=== PATIENT | female | born 1955 | race Caucasian/White ===

== ENCOUNTER 2016-11-28 21:47 | Emergency (ER) | payer OTHER ==
--- NOTE | 2016-11-28 23:31 | DIAGNOSTIC IMAGING REPORT ---
PROCEDURE: XR CHEST 1 VIEW INDICATION: CHEST PAIN TECHNIQUE: Portable AP view (2310 hours). COMPARISON: None. FINDINGS: Allowing for overlying wires and electrodes, lungs are clear. Heart and mediastinum are normal. Thorax is normal. IMPRESSION: 1. Negative chest.
--- NOTE | 2016-11-29 | DIAGNOSTIC IMAGING REPORT ---
PROCEDURE: US ABDOMEN ULTRASOUND-LIMITED INDICATION: Epigastric pain. TECHNIQUE: Jacome scale and color Doppler sonographic images of the abdomen were obtained. COMPARISON: None. FINDINGS: There are multiple layering and shadowing gallstones. There is no evidence of gallbladder wall thickening (2 mm). Common duct is within normal limits (6 mm). Portions of the liver, pancreas, and right kidney are seen, and are normal. IMPRESSION: 1. Cholelithiasis (multiple layering gallstones).
--- NOTE | 2016-11-29 00:09 | ED CLINICAL REPORT ---
Clinical Report - Physicians/Mid Levels [facility] [address] [place] [address] 11/28/2016 21:49 Patient: MAYE ROMO Time Seen: 22:11. Arrived- By private vehicle. Historian- patient. HISTORY OF PRESENT ILLNESS Chief Complaint: CHEST PAIN. It is described as pressure and it is described as located in the right chest area and RUQ of the abdomen and radiating to the upper back. At its maximum, severity described as 10 / 10. When seen in the E.D., it was gone. Modifying factors- worsened by supine position. Relieved by upright position. This started today and is now gone. It was gradual in onset and has been constant and waxing/waning. Onset during rest. No nausea or vomiting. She has had difficulty breathing and has experienced diaphoresis. Similar symptoms previously: Several times. REVIEW OF SYSTEMS No chills, fever, sweats, calf pain or abdominal pain. No black stools, bloody stools, constipation, nausea or vomiting. No urinary problems. She has had a mild nonproductive cough (today - " a tickle"). She has had pedal edema (recently while she was on a road trip to [place] and back). She has had mild diarrhea (today). She had a stress test at the [facility] abut 6 years ago. All systems otherwise negative, except as recorded above. PAST HISTORY PCP - Hannah Chandra. Problems: Anxiety Reaction. Gallstone(s). Hyperlipidemia. Additional Surgeries: Bunion . . Ovarian cyst x 2 . Tubal Ligation. Medications: ASA Oral 325, day. BusPIRone HCl Oral 10 mg, 2x a day. Simvastatin Oral 20 mg, daily. Allergies: No Known Drug Allergy. SOCIAL HISTORY Never smoker. Occasional alcohol use. No drug use. Recent travel- [facility]. Residence: [place] she lives with spouse. Has good social support. FAMILY HISTORY No history of aortic aneurysm or dissection. Hypertension in first-degree relative (mother); heart disease in first-degree relative (mother and father); cancer in first-degree relative (father). ADDITIONAL NOTES The nursing notes have been reviewed. PHYSICAL EXAM Vital Signs: 11/28/2016 21:50 BP: 194/72. HR: 71. RR: 16. O2 saturation: 96%. Temp: 97.6 F. Pain level now: 10. Have been reviewed. Appearance: Alert. Eyes: Pupils equal, round and reactive to light. ENT: Pharynx normal. Neck: Neck supple. CVS: Normal heart rate and rhythm. Heart sounds normal. Respiratory: No respiratory distress. Breath sounds normal. Abdomen: Soft. Mild tenderness in the right upper quadrant. Bowel sounds normal. No organomegaly. No mass. Obese. Back: Normal external inspection. Skin: Skin warm and dry. Normal skin color. Normal skin turgor. Extremities: Extremities exhibit normal ROM. No calf tenderness. No lower extremity edema. Neuro: No motor deficit. No sensory deficit. LABS, X-RAYS, AND EKG Abdominal Sonogram: Gallstones are present. Common duct is normal. No gallbladder wall thickening, pericholecystic fluid, dilated common duct or common duct stones. Laboratory Tests: CBC w Diff: (QUINTON: 11/28/2016 22:10) ( MsgRcvd 11/28/2016 22:25) Final results Test Result Flag Units (Reference) WHITE BLOOD COUNT 7.8 K/uL (4.5-11.5) RED BLOOD COUNT 4.73 M/uL (4.00-5.20) HEMOGLOBIN 14.3 gm/dL (12.0-16.0) HEMATOCRIT 42.9 % (36.0-46.0) MEAN CELL VOLUME 91 fL (80-100) MEAN CORPUSCULAR HGB 30 pg (26-34) MEAN CORPUSCULAR HGB CONC 33 g/dL (31-37) RED CELL DISTRIBUTION WIDTH 12.9 % (11.6-14.8) PLATELET COUNT 183 K/uL (150-400) NEUTROPHIL % 53.6 % (50-75) LYMPH % 37.1 % (25-40) MONO % 6.1 % (3-14) EOSINOPHIL % 2.6 % (0-4) BASOPHIL % 0.6 % (0-2) PT with INR: (QUINTON: 11/28/2016 22:10) ( MsgRcvd 11/28/2016 22:30) Final results Test Result Flag Units (Reference) INR 0.9 (0.8-1.2) Low Intensity Therapy: INR 1.5-2.0 PT range 18.5-23.1Mod.Intensity Therapy: INR 2.0-3.0 PT range 23.1-31.5High Intensity Therapy: INR 2.5-3.5 PT range 27.4-35.5High Intensity Therapy 2: INR 3.0-4.0 PT range 31.5-39.3 APTT 27 SECONDS (24-34) BNP: (QUINTON: 11/28/2016 22:10) ( [facility] 11/28/2016 22:52) Final results Test Result Flag Units (Reference) B-TYPE NATRIURETIC PEPTIDE 19.7 pg/ml (5-100) CMP: (QUINTON: 11/28/2016 22:10) ( IlgRcvd 11/28/2016 22:44) Final results Test Result Flag Units (Reference) GLUCOSE 119 H mg/dL (70-110) BUN 19 H mg/dL (7-18) CREATININE 0.8 mg/dL (0.6-1.3) Estimated GFR >60 mL/min Estimated GFR- >60 mL/min Note: Persistent reduction over 3 months in eGFR<60 mL/min/1.73 m2 defines CKD. Patients with eGFR values>=60 mL/min/1.73 m2 may also have CKD if evidence ofpersistent proteinuria. Additional information may be foundat www.kidney.org. SODIUM 143 mmol/L (136-145) POTASSIUM 4.0 mmol/L (3.5-5.1) CHLORIDE 107 mmol/L (98-107) CARBON DIOXIDE 26 mmol/L (21-32) CALCIUM 9.1 mg/dL (8.5-10.1) TOTAL PROTEIN 7.5 g/dL (6.4-8.2) ALBUMIN 3.7 g/dL (3.3-5.0) BILIRUBIN, TOTAL 0.3 mg/dL (0.0-1.0) ALKALINE PHOSPHATASE 85 U/L (46-116) AST (SGOT) 58 H U/L (15-37) ALT (SGPT) 54 U/L (12-78) LIPASE 158 U/L (73-393) AMYLASE 61 U/L (25-115) CPK 51 U/L (24-260) TROPONIN I <0.05 L ng/mL (0.00-1.5) TROPONIN REFERENCE RANGE:<0.1 NEGATIVE0.1-1.5 INDETERMINANT>1.5 POSITIVE . PROGRESS AND PROCEDURES Course of Care: I asked the patient whether she would prefer if I contact a surgeon now for consultation whether she would like to do this on an outpatient basis. She says that she is feeling well currently has no pain and understands the pathophysiology of her illness. She will follow-up on an outpatient basis for surgical evaluation. Additionally she said she will return here if her symptoms recur or worsen or if any new symptoms develop. Patient is stable. Patient/family counseled. Old medical records ordered. Old records unavailable. Disposition: Discharged. Condition: stable. CLINICAL IMPRESSION Gallbladder disease with multiple gallstones; acute biliary colic. INSTRUCTIONS Avoid fatty and fried/greasy foods. Warnings: Further evaluation is necessary. GENERAL WARNINGS: Return or contact your physician immediately if your condition worsens or changes unexpectedly, if not improving as expected, or if other problems arise. Your Current Medications: CONTINUE TAKING THE FOLLOWING MEDICATIONS: ASA Oral : 325 day. BusPIRone HCl Oral : 10 mg 2x a day. Simvastatin Oral : 20 mg daily. Understanding of the discharge instructions verbalized by patient and family. Follow-up with: Ander Hannon MD, General Surgeon, , [facility], [address] [place] [address] Follow up Thursday in three days. Call for the next available appointment. (Electronically signed by Hero Anna MD 12/01/2016 10:04)
--- NOTE | 2016-11-29 00:09 | ED ORDER SUMMARY ---
..... Patient: MAYE ROMO OrderSheet [facility] VisitID: [id number] [place] [address] 61y, F Registration Date/Time: 11/28/2016 ORDER SHEET Weight: 96.6 kg (stated) Allergies: No Known Drug Allergy GENERAL ORDERS: Chest 1V Urgent (22:14 11/28/2016 Catherine THOMAS) (Ack 22:19 SRemackenzie) (23:15 MCampbell) Kids Club Attendant (Continuous) (22:14 11/28/2016 Catherine THOMAS) (22:17 SRoberts R.N.) (Ack 22:19 SRemackenzie) CBC w Diff Urgent (22:15 11/28/2016 Catherine THOMAS) (22:18 SRoberts R.N.) (Ack 22:19 SRemackenzie) CMP Urgent (22:11/28/2016 Catherine THOMAS) (22:18 SRoberts R.N.) (Ack 22:19 SRemackenzie) UA-Culture if indicated Urgent (22:15 11/28/2016 Catherine THOMAS) (Ack 22:19 Edmund) (23:50 TBowen R.N.) PT with INR Urgent (22:15 11/28/2016 Catherine THOMAS) (22:18 SRoberts R.N.) (Ack 22:19 SRemackenzie) PTT Urgent (22:15 11/28/2016 Catherine THOMAS) (22:18 SRoberts R.N.) (Ack 22:19 SRemackenzie) Amylase Urgent (22:15 11/28/2016 Catherine THOMAS) (22:18 SRoberts R.N.) (Ack 22:19 SRemackenzie) Lipase Urgent (22:15 11/28/2016 Catherine THOMAS) (22:18 SRoberts R.N.) (Ack 22:19 Edmund) CPK Urgent (22:15 11/28/2016 Catherine THOMAS) (22:18 SRoberts R.N.) (Ack 22:19 SRemackenzie) Troponin-I Urgent (22:15 11/28/2016 Catherine THOMAS) (22:18 SRoberts R.N.) (Ack 22:19 SRedmond) BNP Urgent (22:15 11/28/2016 Catherine THOMAS) (22:18 SRgeorgits R.N.) (Ack 22:19 SRedmond) Oxygen (2 L/min) (NC) (22:15 11/28/2016 Catherine THOMAS) (22:17 Ag R.N.) (Ack 22:19 SRedmond) Pulse oximeter (22:15 11/28/2016 Catherine THOMAS) (22:17 Ag R.N.) (Ack 22:19 SRedmond) EKG - ER Stat (22:15 11/28/2016 Catherine THOMAS) (22:17 Ag R.N.) (22:18 SRedmond) (22:18 Memo) D-Dimer Urgent (23:02 11/28/2016 Catherine THOMAS) (Ack 23:05 SRedmond) (0:07 HSoule) US Abdomen Limited (No) Urgent (23:05 11/28/2016 Catherine THOMAS) (Ack 23:09 SRedmond) (23:27 SRedmond) MEDICATION ORDERS: Aspirin PO 325 mg (NOW) (22:14 11/28/2016 Catherine THOMAS) (Ack 22:18 Ag R.N.) (22:21 Ag R.N.) IV FLUIDS: IV Saline Lock (22:15 11/28/2016 Catherine THOMAS) (22:18 Ag R.N.) ORDER SHEET NOTES: [Electronically signed by Aga Walter R.N. (00:29 11/29/2016)] [Electronically signed by Hero Anna MD (10:04 12/01/2016)] [Electronically locked/signed by Aga Walter R.N. (00:29 11/29/2016)]
--- NOTE | 2016-11-29 00:09 | ED NURSING NOTES ---
Clinical Report - Nurses Located Within [facility] [place] [address] [place] [address] 11/28/2016 21:49 Patient: MAYE ROMO TRIAGE Triage time 21:51. Acuity: LEVEL 3. Chief Complaint: CHEST PAIN and BACK PAIN (Pain located under the rt breast. started a couple of hours ago.). Alert. No acute distress. SEPSIS SCREEN: Sepsis Screen: negative. Negative (no infection suspected/documented). MAIK COMA SCORE: [place] Coma Scale: 15- eyes open spontaneously (4); best verbal response- oriented x 4 (5); best motor response- obeys commands (6). --21:58 Giovanna Ordonez R.N. 21:50 11/28/16. BP: 194/72 taken on the right arm, while sitting. HR: 71. RR: 16. O2 saturation: 96% on room air. Temp: 97.6 F. Pain level now: 12/31. --21:58 Giovanna Ordonez R.N. Weight: 96.6 kg stated. Height/Length: 65 inches Per Patient. BMI: 35.5. --21:56 Giovanna Ordonez R.N. Medications Simvastatin Oral 20 mg, daily. --21:53 Giovanna Ordonez R.N. BusPIRone HCl Oral 10 mg, 2x a day. --21:53 Giovanna Ordonez R.N. ASA Oral 325, day. --21:53 Giovanna Ordonez R.N. Medication/allergy information source: the patient. --21:58 Giovanna Ordonez R.N. Allergies No Known Drug Allergy. --21:53 Giovanna Ordonez R.N. History Arrived by private vehicle. Historian: patient. Accompanied by family. Patient has a primary care physician. Primary physician (andie). Onset. (2 hours ago). She has had difficulty breathing ("when the pain hits hard"). Reports experiencing sweating episodes. She has had a cough. Treatment A CLASS LINEMAN: (tums). PAST MEDICAL HX: Immunizations: status is unknown. The patient is post-menopausal. SOCIAL HX: Never smoker. Occasional alcohol use. No drug use. No infectious disease exposure. ABUSE ASSESSMENT: No report of abuse. FALL RISK ASSESSMENT: Fall risk assessment completed. No fall risk identified. NUTRITIONAL RISK ASSESSMENT: The nutritional risk assessment revealed no deficiencies. FUNCTIONAL ASSESSMENT: Functional assessment: no impairments noted. LEARNING NEEDS ASSESSMENT: The learning needs assessment revealed no barriers. SKIN INTEGRITY ASSESSMENT: Skin integrity risk assessment completed. No skin integrity risk identified. --21:58 Giovanna Ordonez R.N. PROBLEMS: Hyperlipidemia. --21:55 Giovanna Ordonez R.N. ADDITIONAL SURGERIES: Bunion . . Ovarian cyst x 2 . Tubal Ligation. --21:55 Giovanna Ordonez R.N. Interventions ID band on patient. To room. --21:58 Giovanna Ordonez R.N. PHYSICAL ASSESSMENT Ambulatory to room. Patient gowned. GENERAL / NEURO / PSYCH: Alert. Oriented X 4. Appears in pain and anxious. HEENT: Mucous membranes are pink. RESPIRATORY: Respirations not labored. CVS: Pulses within normal limits. Capillary refill less than 2 seconds. GI / : The patient has had nausea. Abdominal tenderness in the right upper quadrant. EXTREMITIES: No lower extremity edema. SKIN: Skin is warm and dry. Normal skin turgor. Skin is non-tender. --21:59 Giovanna Ordonez R.N. NURSING PROGRESS NOTES Oxygen administered by nasal cannula (2 l/nc). monitor and storage bin tender, pulse oximeter and NIBP monitor placed on patient; cardiac cath tech- Lead II; monitor alarms on. Patient gowned. Head of bed elevated. Two patient identifiers checked. Call light placed in reach. Side rails up x 1. Bed placed in lowest position. Brakes of bed on. Patient ready for evaluation- chart flagged. --22:01 Giovanna Ordonez R.N. 22:01 11/28/2016 One (1) unsuccessful IV access attempt including the left antecubital space. Applied bandage and pressure dressing. --22:01 Giovanna Ordonez R.N. 22:10 11/28/2016 Site #1 started via IV in the right antecubital space with an 20g angiocath, with aseptic technique and good blood return; one attempt. Saline lock flushed with 10 mL saline. --22:10 Giovanna Ordonez R.N. 22:10 11/28/2016 Site #2 started via IV in the left wrist with an 20g angiocath, with aseptic technique and good blood return; one attempt. Blood drawn: rainbow set. Labeled in the presence of the patient and sent to the lab. Saline lock flushed with 10 mL saline. --22:10 Giovanna Ordonez R.N. EKG time: (2213 PM). EKG was performed by a tech and shown to the ED physician. --22:11 Giovanna Ordonez R.N. 22:21 11/28/2016 Aspirin PO 325 mg given. Allergies verified and confirmed 5 rights. --22:21 Giovanna Ordonez R.N. Care transferred and report given (Noemi RN). --22:33 Giovanna Ordonez R.N. ( pt resting in bed, no distress at this time, US is complete). --23:51 James Cotto DISPOSITION / DISCHARGE 00:28 11/29/2016 Site #1 removed upon discharge. Catheter intact. Bandaid applied. --00:28 James Cotto 00:28 11/29/2016 Site #2 removed upon discharge. Catheter intact. Bandaid applied. --00:28 James Cotto Departure time: 00:29. Condition at departure: improved. No learning barriers present. Discharge instructions provided and reviewed with the patient. Reviewed referral to a surgeon. Reviewed diet. Patient verbalized understanding. Written instructions provided in Armenian. No warning instructions, medication instructions, treatment instructions, activity restrictions or follow up contact number given. No stop smoking instructions. No work note given. The patient was discharged by the physician. She was discharged home and accompanied by spouse. She left the Emergency Department ambulatory and via private vehicle. Patient driving. FALL RISK ASSESSMENT: Fall risk assessment completed. No fall risk identified. --00:29 James Cotto 00:28 11/29/16. BP: 148/68. HR: 71. RR: 18. O2 saturation: 98%. Temp: deferred. Pain level now: 0/10. --00:29 James Cotto Locked/Released at 11/29/2016 0:29 by James Cotto
--- NOTE | 2016-11-29 00:09 | ED NURSING NOTES ---
Clinical Report - Nurses [facility] [place] [address] [address] 11/28/2016 21:49 Patient: MAYE ROMO TRIAGE Triage time 21:51. Acuity: LEVEL 3. Chief Complaint: CHEST PAIN and BACK PAIN (Pain located under the rt breast. started a couple of hours ago.). Alert. No acute distress. SEPSIS SCREEN: Sepsis Screen: negative. Negative (no infection suspected/documented). MAIK COMA SCORE: [place] Coma Scale: 15- eyes open spontaneously (4); best verbal response- oriented x 4 (5); best motor response- obeys commands (6). --21:58 Giovanna Ordonez R.N. 21:50 11/28/16. BP: 194/72 taken on the right arm, while sitting. HR: 71. RR: 16. O2 saturation: 96% on room air. Temp: 97.6 F. Pain level now: 12/31. --21:58 Giovanna Ordonez R.N. Weight: 96.6 kg stated. Height/Length: 65 inches Per Patient. BMI: 35.5. --21:56 Giovanna Ordonez R.N. Medications Simvastatin Oral 20 mg, daily. --21:53 Giovanna Ordonez R.N. BusPIRone HCl Oral 10 mg, 2x a day. --21:53 Giovanna Ordonez R.N. ASA Oral 325, day. --21:53 Giovanna Ordonez R.N. Medication/allergy information source: the patient. --21:58 Giovanna Ordonez R.N. Allergies No Known Drug Allergy. --21:53 Giovanna Ordonez R.N. History Arrived by private vehicle. Historian: patient. Accompanied by family. Patient has a primary care physician. Primary physician (andie). Onset. (2 hours ago). She has had difficulty breathing ("when the pain hits hard"). Reports experiencing sweating episodes. She has had a cough. Treatment ADMINISTRATIVE SALES ASSISTANT: (tums). PAST MEDICAL HX: Immunizations: status is unknown. The patient is post-menopausal. SOCIAL HX: Never smoker. Occasional alcohol use. No drug use. No infectious disease exposure. ABUSE ASSESSMENT: No report of abuse. FALL RISK ASSESSMENT: Fall risk assessment completed. No fall risk identified. NUTRITIONAL RISK ASSESSMENT: The nutritional risk assessment revealed no deficiencies. FUNCTIONAL ASSESSMENT: Functional assessment: no impairments noted. LEARNING NEEDS ASSESSMENT: The learning needs assessment revealed no barriers. SKIN INTEGRITY ASSESSMENT: Skin integrity risk assessment completed. No skin integrity risk identified. --21:58 Giovanna Ordonez R.N. PROBLEMS: Hyperlipidemia. --21:55 Giovanna Ordonez R.N. ADDITIONAL SURGERIES: Bunion . . Ovarian cyst x 2 . Tubal Ligation. --21:55 Giovanna Ordonez R.N. Interventions ID band on patient. To room. --21:58 Giovanna Ordonez R.N. PHYSICAL ASSESSMENT Ambulatory to room. Patient gowned. GENERAL / NEURO / PSYCH: Alert. Oriented X 4. Appears in pain and anxious. HEENT: Mucous membranes are pink. RESPIRATORY: Respirations not labored. CVS: Pulses within normal limits. Capillary refill less than 2 seconds. GI / : The patient has had nausea. Abdominal tenderness in the right upper quadrant. EXTREMITIES: No lower extremity edema. SKIN: Skin is warm and dry. Normal skin turgor. Skin is non-tender. --21:59 Giovanna Ordonez R.N. NURSING PROGRESS NOTES Oxygen administered by nasal cannula (2 l/nc). biometrics instructor, pulse oximeter and NIBP monitor placed on patient; glass handler- Lead II; monitor alarms on. Patient gowned. Head of bed elevated. Two patient identifiers checked. Call light placed in reach. Side rails up x 1. Bed placed in lowest position. Brakes of bed on. Patient ready for evaluation- chart flagged. --22:01 Giovanna Ordonez R.N. 22:01 11/28/2016 One (1) unsuccessful IV access attempt including the left antecubital space. Applied bandage and pressure dressing. --22:01 Giovanna Ordonez R.N. 22:10 11/28/2016 Site #1 started via IV in the right antecubital space with an 20g angiocath, with aseptic technique and good blood return; one attempt. Saline lock flushed with 10 mL saline. --22:10 Giovanna Ordonez R.N. 22:10 11/28/2016 Site #2 started via IV in the left wrist with an 20g angiocath, with aseptic technique and good blood return; one attempt. Blood drawn: rainbow set. Labeled in the presence of the patient and sent to the lab. Saline lock flushed with 10 mL saline. --22:10 Giovanna Ordonez R.N. EKG time: (2213 PM). EKG was performed by a tech and shown to the ED physician. --22:11 Giovanna Ordonez R.N. 22:21 11/28/2016 Aspirin PO 325 mg given. Allergies verified and confirmed 5 rights. --22:21 Giovanna Ordonez R.N. Care transferred and report given (Noemi RN). --22:33 Giovanna Ordonez R.N. ( pt resting in bed, no distress at this time, US is complete). --23:51 James Cotto DISPOSITION / DISCHARGE 00:28 11/29/2016 Site #1 removed upon discharge. Catheter intact. Bandaid applied. --00:28 James Cotto 00:28 11/29/2016 Site #2 removed upon discharge. Catheter intact. Bandaid applied. --00:28 James Cotto Departure time: 00:29. Condition at departure: improved. No learning barriers present. Discharge instructions provided and reviewed with the patient. Reviewed referral to a surgeon. Reviewed diet. Patient verbalized understanding. Written instructions provided in French. No warning instructions, medication instructions, treatment instructions, activity restrictions or follow up contact number given. No stop smoking instructions. No work note given. The patient was discharged by the physician. She was discharged home and accompanied by spouse. She left the Emergency Department ambulatory and via private vehicle. Patient driving. FALL RISK ASSESSMENT: Fall risk assessment completed. No fall risk identified. --00:29 James Cotto 00:28 11/29/16. BP: 148/68. HR: 71. RR: 18. O2 saturation: 98%. Temp: deferred. Pain level now: 0/10. --00:29 James Cotto Locked/Released at 11/29/2016 0:29 by James Cotto
--- NOTE | 2016-11-29 00:09 | ED ORDER SUMMARY ---
..... Patient: MAYE ROMO OrderSheet [facility] VisitID: [id number] [place] [address] 61y, F Registration Date/Time: 11/28/2016 ORDER SHEET Weight: 96.6 kg (stated) Allergies: No Known Drug Allergy GENERAL ORDERS: Chest 1V Urgent (22:14 11/28/2016 Catherine THOMAS) (Ack 22:19 SRemackenzie) (23:15 MCampbell) Apprentice Lineman Third Step (Continuous) (22:14 11/28/2016 Catherine THOMAS) (22:17 SRoberts R.N.) (Ack 22:19 SRemackenzie) CBC w Diff Urgent (22:15 11/28/2016 Catherine THOMAS) (22:18 SRoberts R.N.) (Ack 22:19 SRemackenzie) CMP Urgent (22:11/28/2016 Catherine THOMAS) (22:18 SRoberts R.N.) (Ack 22:19 SRemackenzie) UA-Culture if indicated Urgent (22:15 11/28/2016 Catherine THOMAS) (Ack 22:19 Edmund) (23:50 TBowen R.N.) PT with INR Urgent (22:15 11/28/2016 Catherine THOMAS) (22:18 SRoberts R.N.) (Ack 22:19 SRemackenzie) PTT Urgent (22:15 11/28/2016 Catherine THOMAS) (22:18 SRoberts R.N.) (Ack 22:19 SRemackenzie) Amylase Urgent (22:15 11/28/2016 Catherine THOMAS) (22:18 SRoberts R.N.) (Ack 22:19 SRemackenzie) Lipase Urgent (22:15 11/28/2016 Catherine THOMAS) (22:18 SRoberts R.N.) (Ack 22:19 Edmund) CPK Urgent (22:15 11/28/2016 Catherine THOMAS) (22:18 SRoberts R.N.) (Ack 22:19 SRemackenzie) Troponin-I Urgent (22:15 11/28/2016 Catherine THOMAS) (22:18 SRoberts R.N.) (Ack 22:19 SRedmond) BNP Urgent (22:15 11/28/2016 Catherine THOMAS) (22:18 SRgeorgits R.N.) (Ack 22:19 SRedmond) Oxygen (2 L/min) (NC) (22:15 11/28/2016 Catherine THOMAS) (22:17 Ag R.N.) (Ack 22:19 SRedmond) Pulse oximeter (22:15 11/28/2016 Catherine THOMAS) (22:17 Ag R.N.) (Ack 22:19 SRedmond) EKG - ER Stat (22:15 11/28/2016 Catherine THOMAS) (22:17 Ag R.N.) (22:18 SRedmond) (22:18 Memo) D-Dimer Urgent (23:02 11/28/2016 Catherine THOMAS) (Ack 23:05 SRedmond) (0:07 HSoule) US Abdomen Limited (No) Urgent (23:05 11/28/2016 Catherine THOMAS) (Ack 23:09 SRedmond) (23:27 SRedmond) MEDICATION ORDERS: Aspirin PO 325 mg (NOW) (22:14 11/28/2016 Catherine THOMAS) (Ack 22:18 Ag R.N.) (22:21 Ag R.N.) IV FLUIDS: IV Saline Lock (22:15 11/28/2016 Catherine THOMAS) (22:18 Ag R.N.) ORDER SHEET NOTES: [Electronically signed by Aga Walter R.N. (00:29 11/29/2016)] [Electronically signed by Hero Anna MD (10:04 12/01/2016)] [Electronically locked/signed by Aga Walter R.N. (00:29 11/29/2016)]
--- NOTE | 2016-12-01 10:04 | ED MED RECONCILIATION SUMMARY ---
Patient: MAYE ROMO Medication Reconciliation Report [facility] VisitID: [id number] [address] [place] [address] 61y, F Registration Date/Time: 11/28/2016 Weight: 96.6 kg Height/Length: 65 in. BMI: 35.5 ALLERGIES: No Known Drug Allergy The patient's Home Medications are listed below: CONTINUE TAKING THE FOLLOWING MEDICATIONS: ASA Oral 325, day BusPIRone HCl Oral 10 mg, 2x a day Simvastatin Oral 20 mg, daily The source(s) of the original Home Medication information: patient The following Medications were given to the patient in the Emergency Department: Aspirin [PO] PO 325 mg, administered: 11/28/2016 10:21:00 PM The following Medications were prescribed to the patient: None.
--- NOTE | 2016-12-01 10:04 | ED MAR SUMMARY ---
..... Medication Administration Record [facility] [address] [place] [address] Patient: MAYE ROMO Visit ID: [id number] 61y, F Weight: 96.6 kg Height/Length: 65 in BMI: 35.5 ALLERGIES: No Known Drug Allergy Given 22:21 11/28/2016 Giovanna Ordonez R.N. Medication Administered: ASPIRIN [PO], Dose: 325 mg PO. Medication Ordered: Aspirin PO 325 mg (NOW).
--- NOTE | 2016-12-01 10:04 | ED MED RECONCILIATION SUMMARY ---
Patient: MAYE ROMO Medication Reconciliation Report [facility] VisitID: [id number] [address] [place] [address] 61y, F Registration Date/Time: 11/28/2016 Weight: 96.6 kg Height/Length: 65 in. BMI: 35.5 ALLERGIES: No Known Drug Allergy The patient's Home Medications are listed below: CONTINUE TAKING THE FOLLOWING MEDICATIONS: ASA Oral 325, day BusPIRone HCl Oral 10 mg, 2x a day Simvastatin Oral 20 mg, daily The source(s) of the original Home Medication information: patient The following Medications were given to the patient in the Emergency Department: Aspirin [PO] PO 325 mg, administered: 11/28/2016 10:21:00 PM The following Medications were prescribed to the patient: None.
--- NOTE | 2016-12-01 10:04 | ED MAR SUMMARY ---
..... Medication Administration Record [facility] [address] [place] [address] Patient: MAYE ROMO Visit ID: [id number] 61y, F Weight: 96.6 kg Height/Length: 65 in BMI: 35.5 ALLERGIES: No Known Drug Allergy Given 22:21 11/28/2016 Giovanna Ordonez R.N. Medication Administered: ASPIRIN [PO], Dose: 325 mg PO. Medication Ordered: Aspirin PO 325 mg (NOW).
--- NOTE | 2016-12-01 10:04 | ED DISCHARGE INSTRUCTIONS ---
Patient: MAYE ROMO General Instructions [facility] VisitID: [id number] [place] [address] 61y, F Registration Date/Time: 11/28/2016 Gallbladder disease with multiple gallstones; acute biliary colic. INSTRUCTIONS Avoid fatty and fried/greasy foods. Warnings: Further evaluation is necessary. GENERAL WARNINGS: Return or contact your physician immediately if your condition worsens or changes unexpectedly, if not improving as expected, or if other problems arise. Your Current Medications: CONTINUE TAKING THE FOLLOWING MEDICATIONS: ASA Oral : 325 day. BusPIRone HCl Oral : 10 mg 2x a day. Simvastatin Oral : 20 mg daily. Understanding of the discharge instructions verbalized by patient and family. Follow-up with: Ander Hannon MD, General Surgeon, , [facility], [address] [place] [address] Follow up Thursday in three days. Call for the next available appointment. ADDITIONAL INFORMATION GallstonesWith Biliary Colic [Confirmed Dx] The abdominal pain that you have today is due to spasm of the gallbladder. The gallbladder is a small sac under the liver which stores and releases bile. Bile is a fluid that aids in the digestion of fat. A gallstone may form inside the gallbladder and block the flow of bile fluid. This causes mild to severe crampy pain in the mid or right upper abdomen with nausea and vomiting. Home Care: Rest in bed and follow a clear liquid diet until feeling better. If pain or nausea medicine was given to help with your symptoms, take these as directed. Fat in your diet makes the gallbladder contract and may cause increased pain. Therefore, avoid fat in your diet over the next two days and follow a low-fat diet after that. If you are overweight, a low-fat diet will also help you lose weight. Follow Up with your doctor. There is a 50% chance that you will have another episode of pain from your gallstones during the next 2 years. Removal of the gallbladder is the treatment of choice to prevent this. Schedule an appointment with your own doctor during the next week to discuss the treatment options. Get Prompt Medical Attention if any of the following occur: Pain gets worse or moves to the right lower abdomen Repeated vomiting Swelling of the abdomen Pain lasts over 6 hours Fever of 100.4F (38C) or higher, or as directed by your healthcare provider Weakness, dizziness or fainting Dark urine or light colored stools Yellow color of the skin or eyes Chest, arm, back, neck or jaw pain Low Fat Diet A Low-fat diet will help you lose weight. It also can lower cholesterol and prevent symptoms of gallbladder disease. The average [place] diet contains up to 50% fat. This means that 50% of all calories come from fat (80-100 Grams of fat per day). Choosing normal portions of foods from the list below can lower your fat intake to 25-40 Grams of fat per day. This means 10-20% of calories come from fat. The remaining 80-90% of calories come from protein and carbohydrate. This is much healthier for you. Beverages Ok: Nonfat milk, coffee, tea, carbonated beverages Avoid: Whole and low-fat milk, evaporated milk and condensed milk; hot chocolate mixes, milk shakes, malts, eggnog Bread Ok: White, whole wheat or rye bread, alexis or soda crackers, Ying toast, plain rolls, bagels Avoid: Rolls and breads containing whole milk or egg, waffles, pancakes, biscuits, corn bread; cheese crackers, other flavored crackers, pastries, doughnuts; wheat germ Cereal Ok: Oatmeal, whole wheat, bran, multi grain, rice Avoid: Granola or others containing oil or coconut or more than 2 Grams of fat per serving Desserts Ok: Gelatin, water ices, hattie food cake, puddings or sherbet made with non-fat milk, meringues and non-fat yogurt Avoid: Any other commercially prepared desserts or desserts containing fat, whole milk, cream, chocolate and coconut Fats Ok: You may have up to 3 teaspoons of fat daily. This can be in the form of butter, margarine, mayonnaise or vegetable oil Avoid: Cream, non-dairy creams, gravies and cream sauces Fruits Ok: All fruits prepared without fat Avoid: Avocado, coconut, olives Meats Ok: Limit meat to 6 oz daily (broiled, roasted, baked or boiled). Select only lean cuts, well trimmed of fat: beef, fish, brooks, pork and canned fish packed in water. Chicken and turkey with the skin removed Avoid: Fried meats, fish, poultry, fried eggs and fish canned in oils; fatty meats such as ramey, corned beef, hot dogs, luncheon meats, or meats with gravies and sauces Cheese & Eggs Ok: Cheeses labeled "Low Fat"; 3 whole eggs per week, egg whites (Eggbeaters) as desired Avoid: All other cheeses Potatoes, Beans, Pasta Ok: Dried beans, split peas, lentils, potatoes, rice, macaroni, noodles, spaghetti prepared without added fat Avoid: Fried potatoes, potato chips, potatoes prepared with butter, cream cheese Soups Ok: Bouillon or broth soups without fat and with allowed vegetables Avoid: All other soups Vegetables Ok: Fresh, frozen, canned or dried vegetables all prepared without added fat Avoid: Fried vegetables and those prepared with butter, cream, sauces Miscellaneous Ok: Salt, sugar, jelly, hard candy, marshmallows, honey, syrup, spices and herbs, mustard, catsup, lemon, vinegar Avoid: Chocolate, nuts, coconut, cream candies, olives, sunflower or sesame and other seeds, all fried foods, and all cream sauces and gravies You have been given the following additional information: Biliary Colic With Gallstone (Confirmed) Diet, Low Fat (Electronically signed by Hero Anna MD 12/01/2016 10:04)
[2017-01-16] MEDS ORDERED: ASPIRIN ADULT L81 M1 PO (15:08)
[2017-01-16] MEDS ORDERED: BUSPIRONE HCL10 MG PO (15:09)
[2017-01-16] MEDS ORDERED: SIMVASTATIN20 MG PO (15:09)
[2017-01-16] MEDS ORDERED: FLONASE AL50 MCG/ACT IN (15:14)
== END 2016-11-29 00:30 | disposition home or self-care (01) ==
LOC: ED SRH 21:47
DX: K80.70 Calculus of gallbladder and bile duct without cholecystitis without obstruction (principal); Z79.899 Other long term (current) drug therapy
CPT/HCPCS: 90004; 90100; 90469; 90616; 91320; 91556; 92235; 92530; 92610; 94001; 94060; 95059

== ENCOUNTER 2017-01-22 07:41 | Day surgery (SDC) | payer OTHER ==
[~2017-01-22] VITALS: Ht 165.1 cm; Wt 106.5 kg
[~2017-01-22 07:41] MED LIST: ASPIRIN ADULT L81 M1 PO; BUSPIRONE HCL10 MG PO; FLONASE AL50 MCG/ACT IN; SIMVASTATIN20 MG PO
--- NOTE | 2017-01-22 12:07 | DIAGNOSTIC IMAGING REPORT ---
PROCEDURE: XR INTRAOPERATIVE LAP KAREEN INDICATION: GALLSTONES TECHNIQUE: Intraoperative fluoroscopy provided for Dr. Hannon performing an intraoperative cholangiogram following cholecystectomy. Total fluoroscopy time 0.8-minute Cumulative dose 3.6 mGy. COMPARISON: None. FINDINGS: Two intraoperative fluoroscopic spot images of the right upper quadrant of the abdomen demonstrate cannulation of the cystic duct stump and opacification of the intrahepatic and extrahepatic biliary tree. There are no filling defects. There is normal passage of contrast into the duodenum. IMPRESSION: 1. Negative intraoperative cholangiogram.
[2017-01-22] MEDS ORDERED: HYCET1 ML PO (12:13)
--- NOTE | 2017-01-22 12:14 | Provider's Discharge Care Plan ---
Problem, Goal, Plan Problem List 1. S/P laparoscopic cholecystectomy Goals: Improve function, Therapeutic intervention Instructions: Follow up as directed, Take meds as directed
--- NOTE | 2017-01-22 12:14 | Provider's Discharge Care Plan ---
Problem, Goal, Plan Problem List 1. S/P laparoscopic cholecystectomy Goals: Improve function, Therapeutic intervention Instructions: Follow up as directed, Take meds as directed
--- NOTE | 2017-01-22 12:18 | Operative Report ---
Operative Report Date of Surgery: 01/22/17 Preoperate Diagnosis: symptomatic cholelithiasis Postoperative Diagnosis: symptomatic cholelithiasis Surgeon: Ander Hannon MD Home Health Billing Specialist Surgeon: Jose Enrique Khan MD Procedure Performed: Laparoscopic cholecystectomy. Fluoroscopic intraoperative cholangiogram/ interpretation Anesthesia: Gen. endotracheal Indications: 61-year-old female recently emerged from the right upper quadrant abdominal pain over the last 6 years. She has had multiple episodes of right upper quadrant abdominal pain. Ultrasound of the gallbladder showed layering stones. FINDINGS: Distended, thin-walled gallbladder containing multiple tiny stones. Intraoperative cholangiogram showing free flow of contrast material into the duodenum, visualization hepatic radicals, hepatic duct, common bile duct. No evidence of obstruction. Surgical Technique: Patient brought to the operating room and placed in the dorsal supine position. Patient was administered general endotracheal anesthesia by the anesthesiology department. After proper anesthesia taken effect patient's abdomen was prepped using Betadine and draped in a sterile fashion. An infraumbilical incision made in the skin and down through the subcutaneous tissue. A Veress needle was inserted through this site and into the abdominal cavity. After ascertaining the appropriate position with suction irrigation a pneumoperitoneum was obtained using CO2 insufflation to approximate 14 15 mmHg pressure. The varices needle was removed and replaced with 10 mm trocar. The trocar removed leaving the sleeve behind. A laparoscopic video camera was introduced into the abdominal cavity. Under direct visualization a separate 10 mm trocar was placed in subxiphoid region. Two 5 mm trochars were placed in the anterior lateral abdominal wall approximately 3-4 fingerbreadths below the costal margin. Each trocar entered the abdominal cavity under direct visualization. Trochars removed leaving the sleeve behind through which laparoscopic instrumentation was introduced into the abdominal cavity. The aforementioned findings noted. The gallbladder grasped retracted cephalad. Using a combination of blunt dissection and electrocautery were able to circumferentially isolate the cystic duct. A clip was placed at the junction of the neck of the cystic duct and the gallbladder. Small incision made in the anterior surface of the cystic duct. Percutaneous cholangiocatheter was threaded through the anterior abdominal wall into the cystic duct and clipped into position. The fluoroscopic intraoperative cholangiogram was performed.. The aforementioned findings noted, the cholangiogram catheter was retrieved from the cystic duct and the abdominal cavity. The distal cystic duct was clipped in continuity divided. The cystic artery identified clipped continuity divided. The gallbladder was taken down from its bed in a retrograde fashion using electrocautery dissection. When the gallbladder was completely free from its bed, the gallbladder was placed in a sterile specimen container bag and retrieved from the abdominal cavity. The gallbladder specimen was sent to pathology. The gallbladder bed was inspected for hemostasis. The assuring ourselves of proper hemostasis, the right upper quadrant was irrigated copiously with normal saline antibiotic solution and irrigant suctioned out. Approximately 30 cc 0.5% Marcaine with epinephrine were sprayed over the right lobe of of the liver for postop analgesia. The pneumoperitoneum released. All trochars removed and the abdominal cavity. All trocar sites were approximated using 4-0 subcuticular Polysorb interrupted suture. Steri-Strips placed over the wound. Sterile occlusive dressing placed over each site. Patient tolerated procedure well. Patient was extubated and transferred recovery room in stable condition. There were no intraoperative anesthetic outpatient. CONDITION: Stable to postoperative anesthesia recovery room COMPLICATIONS: None ESTIMATED BLOOD LOSS: None FLUIDS: 700 cc lactate Ringers SPECIMEN: Gallbladder contents
[2017-01-22 12:51] VITALS: BP 154/72
== END 2017-01-22 14:29 | disposition home or self-care (01) ==
LOC: OR SRH 07:41 → SCU SRH 07:42 → OR SRH 09:00
DX: K80.10 Calculus of gallbladder with chronic cholecystitis without obstruction (principal)
CPT/HCPCS: 29229; 29240; 50002; 60001; 70002; 80102; 80248; 82669; 82794; 82807; 83338; 83339; 83348; 83587; 83920; 83937; 83982; 84038